=== PATIENT | male | born 1940 | race Caucasian/White ===

== ENCOUNTER → 2021-02-09 | Outpatient (CLI) | payer OTHER ==
[~2021-02-09] MED LIST: AMBIEN 10 MG TA10 MG PO; ASPIR 8181 M1 PO; ATIVAN1 MG PO; B-12 DOTS500 MCG PO; CIPRO250 M1 PO; CIPRO500 MG PO; CYMBALTA30 MG PO; ERYTHROMYCIN E3.5 G1 OPHTHALMIC; FIBERCON625 MG PO; FLOMAX0.4 MG PO; FOLIC ACID1 MG PO; HYDROCHLOROTHIA25 M1 PO; IBUPROFEN 800800 M1 PO; LEVOTHROID75 MCG PO; LEVOTHYROXIN0.075 MG PO; LEVSIN0.125 MG PO; LIPITOR10 MG PO; NAMENDA 5 MG TAB5 M1 PO; NEXIUM40 MG PO; NORCO 5-325 TA1 EAC2 PO; ONDANSETRON HCL4 M2 PO; PERCOCET PO; PLAVIX 75 MG TA75 M1 PO; PROTONIX40 M2 PO; RED YEAST RICE600 MG PO; SYNTHROID112 MC1 PO; TRIAMCINOLONE A80 G2 TOP; TYLENOL325 MG PO; UNICOMPLEX M TA1 TA1 PO; VITAMIN B-12500 MCG PO
== END ==
LOC: SJCVC 13:43
PROVIDERS: ATTEND Internal Medicine
DX: R94.31 Abnormal electrocardiogram [ECG] [EKG] (principal); I45.10 Unspecified right bundle-branch block; R55 Syncope and collapse; R06.02 Shortness of breath; D12.6 Benign neoplasm of colon, unspecified; J44.9 Chronic obstructive pulmonary disease, unspecified; E78.5 Hyperlipidemia, unspecified; E03.9 Hypothyroidism, unspecified; I48.0 Paroxysmal atrial fibrillation; Z90.49 Acquired absence of other specified parts of digestive tract; Z95.2 Presence of prosthetic heart valve; Z85.07 Personal history of malignant neoplasm of pancreas; Z79.899 Other long term (current) drug therapy; Z87.891 Personal history of nicotine dependence; Z82.49 Family history of ischemic heart disease and other diseases of the circulatory system

== ENCOUNTER → 2021-02-17 | Outpatient (CLI) | payer OTHER | LOC: SJCVCIMAG 07:58 | PROVIDERS: ATTEND Internal Medicine | DX: I08.1 Rheumatic disorders of both mitral and tricuspid valves (principal); J44.9 Chronic obstructive pulmonary disease, unspecified; R06.00 Dyspnea, unspecified; R55 Syncope and collapse; Z95.2 Presence of prosthetic heart valve ==

== ENCOUNTER → 2021-03-23 | Outpatient (CLI) | payer OTHER | LOC: SJCVCIMAG 06:20 | PROVIDERS: ATTEND Internal Medicine | DX: R55 Syncope and collapse (principal); R06.02 Shortness of breath; D12.6 Benign neoplasm of colon, unspecified; J44.9 Chronic obstructive pulmonary disease, unspecified; E78.5 Hyperlipidemia, unspecified; E03.9 Hypothyroidism, unspecified; I48.0 Paroxysmal atrial fibrillation; Z87.891 Personal history of nicotine dependence; Z79.899 Other long term (current) drug therapy; Z85.07 Personal history of malignant neoplasm of pancreas; Z95.2 Presence of prosthetic heart valve ==

== ENCOUNTER → 2021-04-15 | Outpatient (CLI) | payer OTHER | LOC: SJCVC 14:37 | PROVIDERS: ATTEND Internal Medicine Cardiovascular Disease | DX: R94.31 Abnormal electrocardiogram [ECG] [EKG] (principal); I45.10 Unspecified right bundle-branch block; I48.0 Paroxysmal atrial fibrillation; R42 Dizziness and giddiness; J44.9 Chronic obstructive pulmonary disease, unspecified; Z95.3 Presence of xenogenic heart valve; Z90.49 Acquired absence of other specified parts of digestive tract; Z79.899 Other long term (current) drug therapy; Z85.07 Personal history of malignant neoplasm of pancreas; Z87.891 Personal history of nicotine dependence; Z82.49 Family history of ischemic heart disease and other diseases of the circulatory system ==

== ENCOUNTER → 2021-05-12 | Outpatient (CLI) | payer OTHER | LOC: SJCVC 13:53 | PROVIDERS: ATTEND Internal Medicine Cardiovascular Disease | DX: R94.31 Abnormal electrocardiogram [ECG] [EKG] (principal); I45.10 Unspecified right bundle-branch block; R42 Dizziness and giddiness; J44.9 Chronic obstructive pulmonary disease, unspecified; G47.00 Insomnia, unspecified; I48.0 Paroxysmal atrial fibrillation; F41.1 Generalized anxiety disorder; Z95.2 Presence of prosthetic heart valve; Z87.891 Personal history of nicotine dependence; Z79.899 Other long term (current) drug therapy ==